=== PATIENT | female | born 1960 | race Caucasian/White ===

== ENCOUNTER 2017-02-08 15:13 | Inpatient (IN) | payer OTHER ==
[~2017-02-08] VITALS: Ht 165.1 cm; Wt 103.4 kg
[~2017-02-08 15:13] MED LIST: ALORA1 EAC4 TD; Advair HFA 115/21 IH; Ambien PO; Ativan PO; DEMADEX20 M1 PO; DILAUDID2 MG PO; ESTROGEN; Habitrol,Nicoderm CQ TD; LIDODERM 5% P1 PATCH TD; Maalox, Mylanta PO; PROVENTIL,2.5 MG/0.5 IH; Phenergan W/Codeine PO; Protonix PO; SPIRIVA1 INHALATI IH; Sterapred DS 10 mg U PO; Tylenol Regular Stre PO; Ultram PO; VITAMIN D2000 UNIT PO; Vicodin,Norco 5/325 PO; Vitamin D PO; Xanax PO; ZOFRAN4 MG PO; ZOVIRAX OINTMEN15 GM TP; oxyCODONE PO
[2017-02-08 15:44] LABS: HEMATOCRIT 40.2 % (36.0-46.0); MCH 29.7 PG (29.0-34.0); MCHC 33.8 G/DL (30.0-36.0); MCV 87.8 FL (83-99); MEAN PLAT.VOLUME 9.3 uM^3 (9.5-12.4); PLATELET COUNT 367 K/uL (156-360); RBC DIS.WIDTH-CV 13.4 % (11.8-14.6); RBC DIS.WIDTH-SD 43.2 % (39-53); RED BLOOD COUNT 4.58 M/uL (3.80-5.20); WHITE BLOOD COUNT 11.4 K/uL (4.1-10.2)
[2017-02-08 16:06] LABS: CHLORIDE 104 mEq/L (99-109); POTASSIUM 3.8 mEq/L (3.7-5.4); SODIUM 140 mEq/L (136-147)
[2017-02-08 16:08] LABS: GLUCOSE 97 mg/dL (70-99)
[2017-02-08 16:09] LABS: ANION GAP 10 MEQ/L (2-14)
[2017-02-08 16:10] LABS: TOTAL BILIRUBIN 0.6 mg/dL (0.0-1.0)
[2017-02-08 16:11] LABS: ALKALINE PHOSPHATASE 93 IU/L (3-129)
[2017-02-08 16:12] LABS: GFR ESTIMATE (CALCULATED) > 59 mL/min/
[2017-02-08 16:13] LABS: UREA NITROGEN (BUN) 11 mg/dL (9-23)
[2017-02-08 17:17] LABS: BILIRUBIN NEGATIVE; BLOOD NEGATIVE; COLOR YELLOW ((YELLOW)); GLUCOSE (STRIP) NEGATIVE; KETONES NEGATIVE; LEUKOCYTES NEGATIVE; NITRITE NEGATIVE; PROTEIN (STRIP) NEGATIVE; SPECIFIC GRAVITY 1.013 (1.000-1.030); UCUL ADDED? NO; UROBILINOGEN 0.2 MG/DL (0.2-1.0)
[2017-02-08 17:21] LABS: ADD MIUA? YES
[2017-02-08 17:24] LABS: BACTERIA RARE /HPF; EPITHELIAL CELLS 1+ /HPF; MUCUS TRACE /LPF; RED BLOOD CELLS 0-5 /HPF (0-5); WHITE BLOOD CELLS 0-5 /HPF (0-5)
[2017-02-08] MEDS ORDERED: PROTONIX40 MG PO (17:26)
[2017-02-08] MEDS ORDERED: ALORA TP (17:27)
[2017-02-08] MEDS ORDERED: AMBIEN10 MG PO (17:28)
[2017-02-08] MEDS ORDERED: BYSTOLIC5 MG PO (17:28)
[2017-02-08] MEDS ORDERED: TRIBENZOR 20-51 EAC1 PO (17:29)
[2017-02-08] MEDS ORDERED: VENTOLIN HFA18 GM IH (17:29)
[2017-02-08 18:18] VITALS: BP 119/72
[2017-02-09 00:03] VITALS: BP 122/69
[2017-02-09 08:01] VITALS: BP 113/73
[2017-02-09 15:25] VITALS: BP 104/61
[2017-02-10 07:11] VITALS: BP 110/69
[2017-02-10 08:07] LABS: BASOPHIL COUNT 0.1 K/uL (0-0.1); EOSINOPHIL (%) 1.7 % (0-5); EOSINOPHIL COUNT 0.1 K/uL (0-0.3); HEMATOCRIT 32.8 % (36.0-46.0); IMMATURE GRANULOCYTE (%) 0.1 % (0.0-0.7); INSTRUMENT ABS NEUTROPHIL CT 3.4 K/uL; LYMPHOCYTE COUNT 2.7 K/uL (1.0-2.8); MCH 30.5 PG (29.0-34.0); MCHC 34.5 G/DL (30.0-36.0); MCV 88.6 FL (83-99); MONOCYTE (%) 9.3 % (3-12); MONOCYTE COUNT 0.6 K/uL (0-0.8); NEUTROPHIL (%) 49.1 % (45-76); NEUTROPHIL COUNT 3.4 K/uL (1.8-6.4); RBC DIS.WIDTH-CV 13.6 % (11.8-14.6); RBC DIS.WIDTH-SD 44.2 % (39-53)
[2017-02-10 08:10] LABS: WHITE BLOOD COUNT 6.9 K/uL (4.1-10.2)
[2017-02-10 08:17] LABS: MEAN PLAT.VOLUME 9.5 uM^3 (9.5-12.4); PLAT.SUFFICIENCY ADEQUATE
[2017-02-10 08:22] LABS: PLATELET COUNT 250 K/uL (156-360)
[2017-02-10 15:49] VITALS: BP 127/68
[2017-02-10 22:34] VITALS: BP 121/70
[2017-02-11 07:35] VITALS: BP 132/83
[2017-02-11 13:12] LABS: C DIFF TOXIN NEGATIVE (NEGATIVE)
[2017-02-11 13:15] LABS: PROBE CHECK PASS; SPECIMEN PROCESSING CONTROL PASS
[2017-02-11 21:11] VITALS: BP 147/81
[2017-02-11 23:58] VITALS: BP 126/82
[2017-02-12 07:18] LABS: HEMATOCRIT 32.5 % (36.0-46.0); MCHC 35.4 G/DL (30.0-36.0); MCV 87.6 FL (83-99); MEAN PLAT.VOLUME 9.6 uM^3 (9.5-12.4); PLATELET COUNT 277 K/uL (156-360); RBC DIS.WIDTH-CV 13.5 % (11.8-14.6); RBC DIS.WIDTH-SD 43.2 % (39-53); RED BLOOD COUNT 3.71 M/uL (3.80-5.20); WHITE BLOOD COUNT 6.3 K/uL (4.1-10.2)
[2017-02-12 07:50] LABS: ALKALINE PHOSPHATASE 73 IU/L (3-129); ANION GAP 9 MEQ/L (2-14); CHLORIDE 107 MEQ/L (99-109); GFR ESTIMATE (CALCULATED) > 59 mL/min/; GLUCOSE 96 mg/dL (70-99); POTASSIUM 3.1 MEQ/L (3.7-5.4); SAMPLE HEMOLYSIS CHECK 0; SAMPLE ICTERIC CHECK 0; SAMPLE LIPEMIA CHECK 0; SODIUM 142 MEQ/L (136-147); TOTAL BILIRUBIN 0.4 MG/DL (0.0-1.0); UREA NITROGEN (BUN) 3 mg/dL (9-23)
[2017-02-12 07:52] VITALS: BP 164/92
[2017-02-12 15:16] VITALS: BP 183/84
[2017-02-12] MEDS ORDERED: CIPROFLOXACIN500 M1 PO (17:50)
[2017-02-12] MEDS ORDERED: METRONIDAZOLE500 MG PO (17:50)
== END 2017-02-12 18:20 | disposition home or self-care (01) | DRG 392 ==
LOC: EXP 15:13 → EME 15:13 → EDOF 16:47 → 5EAST 16:47
PROVIDERS: Internal Medicine; Surgery
DX: K57.32 Diverticulitis of large intestine without perforation or abscess without bleeding (principal); I10 Essential (primary) hypertension; E66.9 Obesity, unspecified; Z68.37 Body mass index [BMI] 37.0-37.9, adult; J45.909 Unspecified asthma, uncomplicated; M79.7 Fibromyalgia; K21.9 Gastro-esophageal reflux disease without esophagitis; R51 Headache; G43.909 Migraine, unspecified, not intractable, without status migrainosus; E78.5 Hyperlipidemia, unspecified; K58.9 Irritable bowel syndrome, unspecified; Z87.891 Personal history of nicotine dependence; D64.9 Anemia, unspecified
CPT/HCPCS: 80053; 81003; 85025; 85027; 87493; 99202; 99281; 99285; J0744; J1170; J1885; J2270; J2405; J3010; J7030; J7042; S0028; S0030

== ENCOUNTER 2017-04-08 13:39 | Emergency (ER) | payer OTHER ==
[~2017-04-08] VITALS: Ht 167.6 cm; Wt 103.0 kg
[~2017-04-08 13:39] MED LIST changes: +ALORA TP; +AMBIEN10 MG PO; +BYSTOLIC5 MG PO; +CIPROFLOXACIN500 M1 PO; +METRONIDAZOLE500 MG PO; +PROTONIX40 MG PO; +TRIBENZOR 20-51 EAC1 PO; +VENTOLIN HFA18 GM IH
[2017-04-08 14:58] LABS: MCH 30.4 PG (29.0-34.0); MCHC 35.4 G/DL (30.0-36.0); MCV 85.9 FL (83-99); MEAN PLAT.VOLUME 9.2 uM^3 (9.5-12.4); PLATELET COUNT 384 K/uL (156-360); RBC DIS.WIDTH-CV 13.9 % (11.8-14.6); RBC DIS.WIDTH-SD 43.3 % (39-53); RED BLOOD COUNT 4.54 M/uL (3.80-5.20); WHITE BLOOD COUNT 9.3 K/uL (4.1-10.2)
[2017-04-08 15:07] LABS: CHLORIDE 104 mEq/L (99-109); POTASSIUM 3.4 mEq/L (3.7-5.4); SODIUM 143 mEq/L (136-147)
[2017-04-08 15:08] LABS: GLUCOSE 95 mg/dL (70-99)
[2017-04-08 15:10] LABS: ANION GAP 12 MEQ/L (2-14)
[2017-04-08 15:12] LABS: GFR ESTIMATE (CALCULATED) > 59 mL/min/
[2017-04-08 15:13] LABS: UREA NITROGEN (BUN) 10 mg/dL (9-23)
[2017-04-08 15:19] LABS: TROP-I INTERPRETATION NEGATIVE; TROPONIN-I < 0.01 ng/mL (0.0-0.30)
[2017-04-08 15:28] LABS: D-DIMER ELISA 0.85 mg/L FEU (< 0.57)
[2017-04-08] MEDS ORDERED: ULTRACET1 TABLET PO (19:21)
[2017-04-08] MEDS ORDERED: MOTRIN600 MG PO (19:21)
[2017-04-08] MEDS ORDERED: PREDNISONE20 MG PO (19:25)
[2017-04-08 20:23] VITALS: BP 124/82
== END 2017-04-08 20:26 | disposition home or self-care (01) ==
LOC: EME 13:39
DX: M54.6 Pain in thoracic spine (principal); J44.9 Chronic obstructive pulmonary disease, unspecified; Z87.891 Personal history of nicotine dependence; Z90.710 Acquired absence of both cervix and uterus
CPT/HCPCS: 71020; 71250; 78582; 80048; 84484; 85027; 85379; 93005; 99281; 99285; A9540; A9567; J1885; J3010; J7030